=== PATIENT | female | born 2000 | race Caucasian/White ===

== ENCOUNTER 2023-02-07 14:46 | Outpatient (CLI) | payer SELFPAY ==
[2023-02-07 21:43] LABS: GC DNA Amplified* NOT DETECTED (No Detected)
[2023-02-07 22:32] LABS: Chlamydia DNA Amplified* DETECTED (No Detected)
== END 2023-02-07 14:47 | disposition home or self-care (01) ==
LOC: NFLDREF 14:48
PROVIDERS: Visit Provider Advanced Practice Midwife
DX: Z11.3 Encounter for screening for infections with a predominantly sexual mode of transmission (principal)
CPT/HCPCS: 87491; 87591